=== PATIENT | female | born 1985 | race Asian ===

== ENCOUNTER 2021-03-28 12:14 | Emergency (ER) | payer OTHER ==
[~2021-03-28] VITALS: Ht 157.5 cm; Wt 0.5 kg
== END 2021-03-28 14:42 | disposition home or self-care (01) ==
LOC: ER 12:14
DX: H92.03 Otalgia, bilateral (principal); H61.23 Impacted cerumen, bilateral

== ENCOUNTER → 2021-09-27 09:38 | Outpatient (CLI) | payer OTHER | END | disposition home or self-care (01) | LOC: LAB 09:38 | PROVIDERS: ATTEND Otolaryngology Otolaryngology/Facial Plastic Surgery | DX: D50.8 Other iron deficiency anemias (principal); Z32.02 Encounter for pregnancy test, result negative; Z32.00 Encounter for pregnancy test, result unknown; D68.8 Other specified coagulation defects ==

== ENCOUNTER 2021-10-19 10:04 | Outpatient (CLI) | payer OTHER | END 2021-10-19 10:05 | disposition home or self-care (01) | LOC: LAB 10:04 | PROVIDERS: ATTEND Internal Medicine | DX: I10 Essential (primary) hypertension (principal); E78.49 Other hyperlipidemia; E11.9 Type 2 diabetes mellitus without complications; Z01.811 Encounter for preprocedural respiratory examination; Z12.11 Encounter for screening for malignant neoplasm of colon; E05.81 Other thyrotoxicosis with thyrotoxic crisis or storm ==

== ENCOUNTER 2021-10-20 08:23 | Outpatient (CLI) | payer OTHER | END 2021-10-20 08:24 | disposition home or self-care (01) | LOC: LAB 08:23 | PROVIDERS: ATTEND Internal Medicine | DX: E78.49 Other hyperlipidemia (principal); E11.9 Type 2 diabetes mellitus without complications; Z12.11 Encounter for screening for malignant neoplasm of colon; E05.81 Other thyrotoxicosis with thyrotoxic crisis or storm ==

== ENCOUNTER 2021-11-08 14:28 | Outpatient (CLI) | payer OTHER | END 2021-11-08 14:50 | disposition home or self-care (01) | LOC: PPH VACUNA 14:28 | PROVIDERS: ATTEND Emergency Medicine Pediatric Emergency Medicine | DX: Z23 Encounter for immunization (principal) ==

== ENCOUNTER 2022-06-28 13:09 | Outpatient (CLI) | payer OTHER | END 2022-06-28 13:10 | disposition home or self-care (01) | LOC: NUCLEAR 13:09 | PROVIDERS: ATTEND Internal Medicine | DX: M81.0 Age-related osteoporosis without current pathological fracture (principal) ==